=== PATIENT | female | born 2000 | race Caucasian/White ===

== ENCOUNTER 2024-04-12 08:45 | Inpatient (IN) | payer BC ==
[~2024-04-12] VITALS: Ht 167.6 cm; Wt 113.4 kg
[2024-04-12 09:30] VITALS: BP 123/77
[2024-04-12] MEDS ORDERED: OXYTOCIN/DEXTROSE 5% 20 UNITS/100 ML BAG IV SCH (09:30)
[2024-04-12] MEDS ORDERED: CALCIUM CARBONATE 500 MG CHEW PO PRN (09:30)
[2024-04-12] MEDS ORDERED: LACTATED RINGER'S 1,000 ML IV PRN (09:30)
[2024-04-12] MEDS ORDERED: OXYTOCIN/0.9 % SODIUM CHLORIDE 30 UNITS/500 ML BAG IV SCH (09:30)
[2024-04-12] MEDS ORDERED: MAGNESIUM HYDROXIDE/AL HYDROX 30 ML CUP PO PRN (09:30)
[2024-04-12] MEDS ORDERED: ondansetron HCL 4 MG/2 ML VIAL IV PRN (10:00)
[2024-04-12 10:05] LABS: HEMATOCRIT 38.7 % (35.0-50.0); HEMOGLOBIN 12.8 g/dL (12.0-18.0); MCH 25.2 (27-36); MCV 76.4 fl (81-99); RBC 5.07 M/ul (4.3-5.7); RDW 18.2 (10.5-15.0)
[2024-04-12 10:14] LABS: AMPHETAMINES, URINE NEGATIVE (NEGATIVE); BARBITURATES, URINE NEGATIVE (NEGATIVE); BENZODIAZEPINE, URINE NEGATIVE (NEGATIVE); BUPRENORPHINE, URINE NEGATIVE (NEGATIVE); CANNABINOID, URINE NEGATIVE (NEGATIVE); COCAINE, URINE NEGATIVE (NEGATIVE); ECSTASY, URINE NEGATIVE (NEGATIVE); FENTANYL, URINE NEGATIVE (NEGATIVE); METHADONE, URINE NEGATIVE (NEGATIVE); OPIATES, URINE NEGATIVE (NEGATIVE); OXYCODONE, URINE NEGATIVE (NEGATIVE); PHENCYCLIDINE, URINE NEGATIVE (NEGATIVE)
[2024-04-12 10:40] LABS: ABO O; ANTIBODY SCREEN NEGATIVE; RH POSITIVE
[2024-04-12] MEDS ORDERED: OXYTOCIN/0.9 % SODIUM CHLORIDE 500 ML IV SCH (20:00)
[2024-04-13] MEDS ORDERED: miSOPROStoL 200 MCG TAB PR ONE (07:00)
[2024-04-13] MEDS ORDERED: MAGNESIUM HYDROXIDE 30 ML UDC PO PRN (07:15)
[2024-04-13] MEDS ORDERED: BENZOCAINE 60 ML AEROSOL TOP PRN (07:15)
[2024-04-13] MEDS ORDERED: OXYTOCIN/0.9 % SODIUM CHLORIDE 500 ML IV SCH (07:15)
[2024-04-13] MEDS ORDERED: HYDROCORTISONE ACETATE 25 MG SUPP PR PRN (07:15)
[2024-04-13] MEDS ORDERED: MAGNESIUM HYDROXIDE/AL HYDROX 30 ML CUP PO PRN (07:15)
[2024-04-13] MEDS ORDERED: WITCH HAZEL/GLYCERIN 1 EA PAD TOP PRN (07:15)
[2024-04-13] MEDS ORDERED: ACETAMINOPHEN 325 MG TAB PO PRN (07:15)
[2024-04-13] MEDS ORDERED: CALCIUM CARBONATE 500 MG CHEW PO PRN (07:15)
[2024-04-13] MEDS ORDERED: IBUPROFEN 600 MG TAB PO PRN (07:15)
[2024-04-13] MEDS ORDERED: SENNOSIDES/DOCUSATE 1 EA TAB PO SCH (09:00)
[2024-04-14 05:36] LABS: HEMOGLOBIN 8.7 g/dL (12.0-18.0)
[2024-04-14 05:39] LABS: HEMATOCRIT 27.2 % (35.0-50.0); MCH 24.9 (27-36); MCHC 31.9 g/dl (30-36); MCV 77.9 fl (81-99); RBC 3.49 M/ul (4.3-5.7); RDW 17.7 (10.5-15.0)
--- NOTE | 2024-04-17 16:14 | PR ---
[facility] [address] [facility] [place] [address] Signed PP Progress Notes Datetime Report Generated by CPN: 04/14/2024 09:03 SUBJECTIVE: [id number] Pain: Within Normal Limits Nausea/Vomiting: Denies Flatus: Yes Vital Signs: [id number] Cardiovascular: Not Done Respiratory: Not Done Abdomen/Uterus: Normal Lochia: Normal Vulva/Perineum: Normal Breasts: Normal CVA Tenderness: Not Done Extremities: Normal Incision: Not Applicable Progress: Normal IMPRESSION/PLAN/PROCEDURES: [id number] Impression: Normal Progression Plan: Continue Present Management; Discharge Progress Notes: Recovering well, desires D/C home. Normal pain/lochia. Signing Physician: Sirisha Cotter MD Copies: ~ *Electronically Signed* 04/14/24 0903 SIRISHA COTTER MD PATIENT NAME: GARETH MASCORRO PROGRESS NOTE DATE OF : 98 PHYSICIAN: SIRISHA COTTER MD RPT #: [id number] REPORT IS CONFIDENTIAL AND NOT TO BE RELEASED WITHOUT AUTHORIZATION
== END 2024-04-14 14:48 | disposition home or self-care (01) | DRG 806 ==
LOC: FBCO 08:45 → FBC 09:00
PROVIDERS: Advanced Practice Midwife; ADMIT Obstetrics & Gynecology; ATTEND Obstetrics & Gynecology
PROC: 10E0XZZ Delivery of Products of Conception, External Approach (ICD-10-PCS; principal; 2024-04-13)
PROC: 0KQM0ZZ Repair Perineum Muscle, Open Approach (ICD-10-PCS; 2024-04-13)
DX: O42.02 Full-term premature rupture of membranes, onset of labor within 24 hours of rupture (principal); O99.354 Diseases of the nervous system complicating childbirth; Z37.0 Single live birth; Z3A.40 40 weeks gestation of pregnancy; O48.0 Post-term pregnancy; O77.0 Labor and delivery complicated by meconium in amniotic fluid; O70.1 Second degree perineal laceration during delivery; O76 Abnormality in fetal heart rate and rhythm complicating labor and delivery; O69.81X0 Labor and delivery complicated by cord around neck, without compression, not applicable or unspecified; G43.909 Migraine, unspecified, not intractable, without status migrainosus; O99.344 Other mental disorders complicating childbirth; F41.8 Other specified anxiety disorders; O99.52 Diseases of the respiratory system complicating childbirth; J45.909 Unspecified asthma, uncomplicated; Z87.891 Personal history of nicotine dependence
CPT/HCPCS: 36415; 80307; 85027; 86850; 86900; 86901; A9270; J2405; J7121